=== PATIENT | male | born 1985 | race Caucasian/White ===

== ENCOUNTER 2016-07-23 15:55 | Emergency (ER) | payer SELFPAY ==
[2016-07-23] MEDS ORDERED: Ondansetron HCl/PF 4 MG/2 ML Vial ONE (16:21)
[2016-07-23] MEDS ORDERED: Sodium Chloride 0.9% 1,000 ML ONE (16:21)
[2016-07-23 16:35] LABS: Bilirubin Negative (Negative); Blood, Urine Negative (Negative); Glucose, Urine (Dipstick) Negative (Negative); Ketone, Urine Negative (Negative); Nitrite Negative (Negative); Protein, Urine (Dipstick) Negative (Neg-Trace); Urobilinogen 0.2 mg/dL (0.2-1.0)
== END 2016-07-23 17:15 | disposition home or self-care (01) ==
LOC: NAV ERS 15:55
DX: K52.9 Noninfective gastroenteritis and colitis, unspecified (principal); F17.210 Nicotine dependence, cigarettes, uncomplicated
CPT/HCPCS: 81003; 96361; 96374; J2405; J7050

== ENCOUNTER 2017-05-04 11:17 | Emergency (ER) | payer SELFPAY ==
[2017-05-04] MEDS ORDERED: Ondansetron HCl/PF 4 MG/2 ML Vial ONE (11:44)
[2017-05-04 11:56] LABS: #Basophils 0.1 thou/uL (0.0-0.2); #Eosinphils 0.4 thou/uL (0.0-0.7); #Lymphocytes 2.7 thou/uL (1.20-3.40); #Monocytes 0.8 thou/uL (0.11-0.59); #Neutrophils 4.3 thou/uL (1.40-6.50); %Eosinophils 5.1 % (0.0-10.0); %Lymphocytes 32.6 % (21.0-51.0); %Monocytes 9.3 % (0.0-10.0); Hemoglobin 17.8 g/dL (14.0-18.0); Mean Corpuscular HGB CONC 32.1 g/dL (32.0-36.0); Mean Corpuscular Hemoglobin 30.2 pg (27.0-31.0); Mean Corpuscular Volume 94.2 fl (80.0-94.0); Mean Platelet Volume 7.3 fL (7.4-10.4); Platelet Count 246 thou/uL (130-400); RBC Distribution Width 11.2 % (11.5-14.5); Red Blood Cell (RBC) Count 5.88 mill/uL (4.70-6.10); White Blood Cell (WBC) Count 8.2 thou/uL (4.8-10.8)
[2017-05-04 12:02] LABS: PTT 29.5 SEC (22.9-36.1); Prothrombin Time 13.2 SEC (12.0-14.7)
[2017-05-04 12:07] LABS: ALT (SGPT) 18 U/L (8-55); AST (SGOT) 18 U/L (5-34); Albumin 4.4 g/dL (3.5-5.0); Alkaline Phosphatase 84 U/L (40-150); Anion Gap 14 mmol/L (10-20); BUN (Urea Nitrogen) 11 mg/dL (8.9-20.6); Bilirubin, Total 0.7 mg/dL (0.2-1.2); CK (CPK) 121 U/L (30-200); Calc. Creatinine Clearance 0 mL/min (70-130); Carbon Dioxide 26 mmol/L (22-29); Chloride 104 mmol/L (98-107); Estimated GFR-MDRD 82; Globulin 3.3 g/dL (2.4-3.5); Glucose 150 mg/dL (70-105); Potassium 4.1 mmol/L (3.5-5.1); Protein, Total 7.7 g/dL (6.0-8.3); Sodium 140 mmol/L (136-145)
--- NOTE | 2017-05-04 12:36 | CT ---
NONCONTRAST CT HEAD: Date: 05-04-17 History: Patient riding and the horse slipped and fell backwards onto patient. Horses head hit patien t's forehead. Patient complains of nausea, vomiting, and blurry vision in left eye. Comparison: None. FINDINGS: There is no evidence of a hemorrhage, acute infarction, mass effect or midline shift. Ventricular sys tem is normal in size, shape, and position. Calvarial structures are intact without evidence of a faiza varial fracture. Minimal mucosal thickening is seen in each maxillary antrum. The remainder of the vi sualized paranasal sinuses as well as mastoid air cells are clear. IMPRESSION: No acute intracranial abnormalities demonstrated. POS: [facility]
--- NOTE | 2017-05-04 12:45 | CT ---
NONCONTRAST CT CERVICAL SPINE: Date: 05-04-17 History: Patient was riding when horse fell over backward and landed on patient. The horse's head hit patient's forehead and slammed patient onto pavement. Patient hit back of head. Complaints of nausea , vomiting and blurry vision in left eye. Technique: Contiguous axial CT images are obtained through the cervical spine from the skull base to the level of the T2 vertebral body. Sagittal and coronal reformatted images are provided. FINDINGS: Vertebral body heights are within normal limits. No fracture or subluxation is seen involving the cer vical spine. There are degenerative changes seen posteriorly involving the C7-T1 level. Slight irregu larity involving the most posterior aspect of the inferior endplate of C7 vertebral body centrally, s ome of which may be developmental in origin, in addition to degenerative change. Prevertebral soft ti ssues are within normal limits. The lung apices are clear. IMPRESSION: No acute fracture or subluxation involving the cervical spine. POS: [facility]
--- NOTE | 2017-05-04 13:05 | CT ---
NONCONTRAST CT LUMBAR SPINE: DATE: 05/04/17. HISTORY: A horse fell backwards on patient. Patient landed on back and then horse landed on patient. TECHNIQUE: Contiguous axial CT images are obtained through the lumbar spine from the superior aspect of the T12 vertebral body to the lumbosacral junction. The most superior end plate of the T12 vertebral body is not imaged but is partially seen on the CT of the thoracic spine also obtained on this date. Verteb ral body heights and intervertebral disk spaces are within normal limits. There is no fracture or kate bluxation involving the lumbar spine. There is a transitional vertebra at the lumbosacral junction w ith partial sacralization of the right aspect of the L5 vertebral body. No significant intradural or extradural defect is identified. Central spinal canal and neural forami na are patent. IMPRESSION: No fracture or subluxation involving the lumbar spine. POS: [facility]
--- NOTE | 2017-05-04 13:08 | CT ---
NONCONTRAST CT THORACIC SPINE: 05/04/2017 HISTORY: The patient was loading a horse onto a ramp when the horse slipped and fell backwards onto the patien t. The horse slammed the patient down on pavement, on his back. The patient has nausea, vomiting, a nd blurry vision. FINDINGS: T1 to T11-T12 was imaged on this exam. The T12 vertebral body is visualized on the CT lumbar spine, also obtained on today's date. The vertebral body heights and intervertebral disk spaces of the thoracic spine are within normal mckeon its. No fracture or subluxation is seen involving the thoracic spine. The paravertebral soft tissue s are within normal limits. There is suggestion of a small central disk protrusion at the T7-T8 leve l, resulting in effacement of the ventral subarachnoid space. No definite additional intradural or e xtradural defect is appreciated on this exam. The visualized lungs are clear, aside from mild dependent atelectasis on the right. IMPRESSION: No acute fracture or subluxation involving the thoracic spine. POS: [facility]
== END 2017-05-04 13:31 | disposition home or self-care (01) ==
LOC: NAV ERS 11:17
DX: S06.0X0A Concussion without loss of consciousness, initial encounter (principal); S16.1XXA Strain of muscle, fascia and tendon at neck level, initial encounter; S00.81XA Abrasion of other part of head, initial encounter; S40.212A Abrasion of left shoulder, initial encounter; S80.811A Abrasion, right lower leg, initial encounter; V80.010A Animal-rider injured by fall from or being thrown from horse in noncollision accident, initial encounter
CPT/HCPCS: 70450; 72125; 72128; 72131; 80053; 82550; 85025; 85610; 85730; 96374; J2405

== ENCOUNTER 2018-04-28 20:07 | Emergency (ER) | payer SELFPAY ==
[2018-04-28] MEDS ORDERED: Acetaminophen/Codeine 30-300mg Tablet ONE (20:37)
[2018-04-28] MEDS ORDERED: Adacel (T-DAP) 0.5 ML VIAL ONE (20:38)
[2018-04-28] MEDS ORDERED: Sulfameth/Trimethoprim DS 800-160mg TAB ONE (20:38)
== END 2018-04-28 21:08 | disposition home or self-care (01) ==
LOC: NAV ERS 20:07
DX: L03.221 Cellulitis of neck (principal); F17.210 Nicotine dependence, cigarettes, uncomplicated
CPT/HCPCS: 90471; 90715

== ENCOUNTER 2022-01-13 12:20 | Emergency (ER) | payer OTHER ==
[2022-01-13] MEDS ORDERED: Sodium Chloride 0.9% 1,000 ML ONE (12:35)
[2022-01-13] MEDS ORDERED: Ketorolac Tromethamine 30 MG/ML VIAL ONE (12:39)
[2022-01-13 12:50] LABS: #Basophils 0.1 thou/uL (0.0-0.2); #Eosinphils 0.2 thou/uL (0.0-0.7); #Lymphocytes 1.9 thou/uL (1.20-3.40); #Monocytes 0.9 thou/uL (0.11-0.59); #Neutrophils 3.9 thou/uL (1.40-6.50); %Basophils 0.8 % (0.0-1.0); %Eosinophils 2.9 % (0.0-10.0); %Lymphocytes 26.7 % (21.0-51.0); %Monocytes 13.5 % (0.0-10.0); Hemoglobin 15.4 g/dL (14.0-18.0); Mean Corpuscular HGB CONC 31.3 g/dL (32.0-36.0); Mean Corpuscular Hemoglobin 28.5 pg (27.0-31.0); Mean Platelet Volume 7.7 fL (7.4-10.4); Platelet Count 255 thou/uL (130-400); RBC Distribution Width 12.1 % (11.5-14.5); Red Blood Cell (RBC) Count 5.39 mill/uL (4.70-6.10); White Blood Cell (WBC) Count 6.9 thou/uL (4.8-10.8)
[2022-01-13 13:14] LABS: Bilirubin Negative (Negative); Blood, Urine Negative (Negative); Clarity Clear (Clear); Glucose, Urine (Dipstick) Negative (Negative); Ketone, Urine Negative (Negative); Leukocyte Negative (Negative); Nitrite Negative (Negative); Protein, Urine (Dipstick) Negative (Neg-Trace); Specific Gravity, Urine 1.027 (1.002-1.036); Urobilinogen 0.2 mg/dL (Less than 2)
[2022-01-13 13:21] LABS: ALT (SGPT) 19 U/L (8-55); AST (SGOT) 19 U/L (5-34); Albumin 4.6 g/dL (3.5-5.0); Alkaline Phosphatase 86 U/L (40-110); Anion Gap 17 mmol/L (10-20); BUN (Urea Nitrogen) 20 mg/dL (8.9-20.6); Bilirubin, Total 0.4 mg/dL (0.2-1.2); CK (CPK) 233 U/L (30-200); Calc. Creatinine Clearance 0 mL/min (70-130); Calcium 9.7 mg/dL (7.8-10.44); Carbon Dioxide 25 mmol/L (22-29); Chloride 103 mmol/L (98-107); Estimated GFR 83; Glucose 106 mg/dL (70-105); Protein, Total 7.6 g/dL (6.0-8.3); Sodium 141 mmol/L (136-145)
[2022-01-13 13:23] LABS: Amphetamine Detected (NotDetected); Barbiturates Screen Not Detected (NotDetected); Benzodiazepine Screen Not Detected (NotDetected); Cocaine Metabolite Screen Not Detected (NotDetected); Medtox Control Line Valid? VALID (VALID); Methadone Not Detected (NotDetected); Methamphetamine Detected (NotDetected); Opiate Screen Not Detected (NotDetected); Oxycodone Screen Not Detected (NotDetected); Phencyclidine (PCP) Not Detected (NotDetected); THC/Cannabinoid Screen Detected (NotDetected); Tricyclic Screen Not Detected (NotDetected)
== END 2022-01-13 13:42 | disposition home or self-care (01) ==
LOC: NAV ERS 12:20
DX: T67.5XXA Heat exhaustion, unspecified, initial encounter (principal); E86.0 Dehydration; F15.10 Other stimulant abuse, uncomplicated; F17.210 Nicotine dependence, cigarettes, uncomplicated
CPT/HCPCS: 80053; 80306; 81003; 82550; 84484; 85025; 93005; 96374; J1885; J7050

== ENCOUNTER 2022-02-08 08:22 | Emergency (ER) | payer OTHER, SELFPAY ==
[2022-02-08] MEDS ORDERED: Fluorescein Opthalmic Strip ONE (08:45)
[2022-02-08] MEDS ORDERED: Proparacaine 0.5% Opth 15 ML BOT ONE (08:45)
== END 2022-02-08 09:08 | disposition home or self-care (01) ==
LOC: NAV ERS 08:22
DX: S05.02XA Injury of conjunctiva and corneal abrasion without foreign body, left eye, initial encounter (principal); H10.9 Unspecified conjunctivitis; F17.210 Nicotine dependence, cigarettes, uncomplicated; F17.220 Nicotine dependence, chewing tobacco, uncomplicated; X58.XXXA Exposure to other specified factors, initial encounter
CPT/HCPCS: 99283

== ENCOUNTER 2022-07-31 13:48 | Emergency (ER) | payer SELFPAY ==
[2022-07-31] MEDS ORDERED: cefTRIAXone\\ROCEPHIN 500 MG VIAL ONE (14:13)
[2022-08-01 16:51] LABS: Chlam.trachomatis by PCR,Urine Not Detected (NotDetected); GC N.gonorrhoeae PCR,UrineVOID DETECTED (NotDetected)
== END 2022-07-31 14:30 | disposition home or self-care (01) ==
LOC: NAV ERS 13:48
DX: N34.1 Nonspecific urethritis (principal); F17.210 Nicotine dependence, cigarettes, uncomplicated
CPT/HCPCS: 87491; 87591; 96372; 99283; J0696

== ENCOUNTER 2022-08-19 13:32 | Emergency (ER) | payer SELFPAY ==
[2022-08-19] MEDS ORDERED: HYDROcodone/Acetaminophen 5/325 mg Tablet ONE (15:21)
[2022-08-19] MEDS ORDERED: Ibuprofen 800 MG TAB ONE (15:21)
== END 2022-08-19 15:45 | disposition home or self-care (01) ==
LOC: NAV ERS 13:32
DX: S67.22XA Crushing injury of left hand, initial encounter (principal); S62.393A Other fracture of third metacarpal bone, left hand, initial encounter for closed fracture; F17.210 Nicotine dependence, cigarettes, uncomplicated; F17.220 Nicotine dependence, chewing tobacco, uncomplicated; W23.0XXA Caught, crushed, jammed, or pinched between moving objects, initial encounter
CPT/HCPCS: 26600

== ENCOUNTER 2024-06-03 17:51 | Emergency (ER) | payer SELFPAY ==
[2024-06-03] MEDS ORDERED: Ibuprofen 800 MG TAB ONE (18:14)
== END 2024-06-03 18:20 ==
LOC: NAV ERS 17:51
DX: S29.011A Strain of muscle and tendon of front wall of thorax, initial encounter (principal); S21.201A Unspecified open wound of right back wall of thorax without penetration into thoracic cavity, initial encounter; F17.210 Nicotine dependence, cigarettes, uncomplicated; F17.220 Nicotine dependence, chewing tobacco, uncomplicated; V49.40XA Driver injured in collision with unspecified motor vehicles in traffic accident, initial encounter; Y93.89 Activity, other specified
CPT/HCPCS: 99284